=== PATIENT | female | born 1945 | race Caucasian/White ===

== ENCOUNTER → 2020-08-17 | Outpatient (CLI) | payer MEDICARE, OTHER | END | disposition home or self-care (01) | LOC: LAB SHORT 12:40 | DX: L82.1 Other seborrheic keratosis (principal) | CPT/HCPCS: 88305 ==

== ENCOUNTER 2021-05-03 15:56 | Emergency (ER) | payer MEDICARE, OTHER ==
[~2021-05-03] VITALS: Ht 157.5 cm; Wt 58.1 kg
[2021-05-03 16:41] LABS: BASOPHILS ABSOLUTE AUTO 0.06 K/mm3 (0.00-0.23); BASOPHILS PERCENT AUTO 1 % (0-2); EOSINOPHILS ABSOLUTE AUTO 0.18 K/mm3 (0.00-0.68); EOSINOPHILS PERCENT AUTO 3 % (0-6); Hematocrit 45.6 % (33.0-51.0); Hemoglobin 15.2 g/dL (11.5-16.0); IMMATURE GRAN ABSOLUTE AUTO 0.02 K/mm3 (0.00-0.10); IMMATURE GRAN PERCENT AUTO 0 % (0-1); LYMPHOCYTES ABSOLUTE AUTO 1.87 K/mm3 (0.84-5.20); LYMPHOCYTES PERCENT AUTO 27 % (21-46); MONOCYTES ABSOLUTE AUTO 0.62 K/mm3 (0.16-1.47); MONOCYTES PERCENT AUTO 9 % (4-13); Mean Corpuscular HGB 30.6 pg (26.0-34.0); Mean Corpuscular HGB Conc 33.3 g/dL (31.5-36.5); Mean Corpuscular Volume 92 fL (80-100); Mean Platelet Volume 8.1 fL (9.1-12.4); NEUTROPHILS ABSOLUTE AUTO 4.12 K/mm3 (1.96-9.15); NEUTROPHILS PERCENT AUTO 60 % (41-73); Platelet Count 319 K/mm3 (150-400); RDW Coefficient Variation 13.1 % (11.7-14.2); RDW Standard Deviation 44.1 fL (35.1-46.3); Red Blood Cell Count 4.96 M/mm3 (3.80-5.20); White Blood Cell Count 6.87 K/mm3 (4.00-11.30)
[2021-05-03 17:18] LABS: Alanine Aminotransfer (ALT/SGP 26 U/L (12-78); Albumin/Globulin Ratio 1.2 (0.8-1.8); Alk Phos 87 U/L (50-136); Anion Gap 5 mmol/L (6-16); Aspartate Aminotrans (AST/SGOT 17 U/L (12-37); Bilirubin, Total 0.5 mg/dL (0.1-1.0); Blood Urea Nitrogen 22 mg/dL (8-24); CO2, Blood 30 mmol/L (21-32); Calcium, Blood 9.7 mg/dL (8.5-10.1); Chloride, Blood 106 mmol/L (98-108); Creatinine, Blood 0.65 mg/dL (0.40-1.00); Globulin, Blood 3.3 g/dL (2.2-4.0); Glomerular Filtration Rate >60 (60-); Glucose, Blood 116 mg/dL (70-99); Potassium, Blood 4.2 mmol/L (3.5-5.5); Sodium, Blood 141 mmol/L (136-145); Total Protein, Blood 7.3 g/dL (6.4-8.2); Troponin I <0.015 ng/mL (0.000-0.040)
[2021-05-03 17:37] LABS: Source, Urine Clean Catch
[2021-05-03 17:45] LABS: Appearance, Urine Hazy (Clear); Bilirubin, Urine Neg (Neg); Blood, Urine Neg (Neg); Color, Urine Yellow (P-Yellow); Glucose Qualitative, Urine Neg (Neg); Ketones, Urine Neg (Neg); Leukocyte Esterase, Urine 3+ (Neg); Nitrite, Urine Pos (Neg); Protein, Urine Neg (Neg); Specific Gravity, Urine 1.025 (1.003-1.022); Urobilinogen, Urine NORM (Normal)
[2021-05-03 17:53] LABS: Bacteria Many /hpf; Red Blood Cells, Urine 0-2 /hpf (0-2); Squamous Epithelial Cells Few /hpf (Few)
[2021-05-03] MEDS ORDERED: SULTRISS PO (18:30)
== END 2021-05-03 18:48 | disposition home or self-care (01) ==
LOC: ER 15:56
PROVIDERS: Physician Assistant
DX: R55 Syncope and collapse (principal); N39.0 Urinary tract infection, site not specified
CPT/HCPCS: 36415; 70450; 71046; 80053; 81001; 82550; 84484; 85025; 87077; 87086; 87186; 93005; 93010; 99284-25; A9270

== ENCOUNTER 2023-08-08 08:58 | Day surgery (SDC) | payer OTHER ==
[~2023-08-08 08:58] MED LIST: SULTRISS PO
[2023-08-16] MEDS ORDERED: ATOR40TA PO (11:38)
[2023-08-16] MEDS ORDERED: CLOP75 PO (11:39)
[2023-08-16] MEDS ORDERED: GLUCHON (11:40)
[2023-08-16] MEDS ORDERED: FLAX (11:40)
[2023-08-16] MEDS ORDERED: COQ-10100 MG PO (11:40)
[2023-08-16] MEDS ORDERED: MAGCHL64ER PO (11:41)
[2023-08-16] MEDS ORDERED: OBSTETRIX ONE PO (11:41)
[2023-08-16] MEDS ORDERED: KRILL OIL500 MG (11:41)
== END 2023-09-05 23:14 | disposition home or self-care (01) ==
LOC: MOI MAM 08:58
DX: C50.811 Malignant neoplasm of overlapping sites of right female breast (principal); Z17.0 Estrogen receptor positive status [ER+]
CPT/HCPCS: 19281; A4648

== ENCOUNTER 2023-08-22 08:54 | Day surgery (SDC) | payer OTHER ==
[~2023-08-22] VITALS: Ht 157.5 cm; Wt 56.0 kg
[2023-08-22] VITALS (14 sets, daily range): BP systolic 126–177; BP diastolic 72–97
[~2023-08-22 08:54] MED LIST changes: +ATOR40TA PO; +CLOP75 PO; +COQ-10100 MG PO; +FLAX; +GLUCHON; +KRILL OIL500 MG; +MAGCHL64ER PO; +OBSTETRIX ONE PO
[2023-08-22] MEDS ORDERED: Lactated Ringer's 1,000 ML IV SCH (09:30)
[2023-08-22] MEDS ORDERED: CeFAZolin Sodium 2,000 MG in NS 100 ML IV SCH (09:30)
[2023-08-22] MEDS ORDERED: CeFAZolin Sodium 2,000 MG VIAL ONE (09:49)
--- NOTE | 2023-08-22 11:01 | NUR ---
PRE-OP NOTE PT A&OX4, BREATHING RA, VSS, CALM, NO COMPLAINTS, DAUGHTER AT BEDSIDE. Ambulatory in Day Surgery Patient confirms NPO status and agrees with scheduled surgery. Pre-Op teaching done. Pt verbalizes understanding. Patient States Post-Procedure ride home has been arranged.
[2023-08-22] MEDS ORDERED: Methylene Blue 1% 100 MG/10 ML VIAL ONE (11:19)
[2023-08-22] MEDS ORDERED: Bupivacaine 0.5% HCl 5 MG/ML 30MLVIAL ONE (11:20)
[2023-08-22] MEDS ORDERED: FentaNYL Citrate 50 MCG/ML 2 ML Injection ONE (14:03)
[2023-08-22] MEDS ORDERED: HYDROcodone 5-APAP 325 TAB PO PRN (14:25)
[2023-08-22] MEDS ORDERED: Metoclopramide HCl 5MG / ML 2ML Vial IV ONE (14:50)
--- NOTE | 2023-08-22 15:20 | NUR ---
1423 REPORT RECEIVED FROM GIOVANY DESIR. VSS. PT ON RA. PT ABLE TO REPOSITION SELF IN BED. PT REQUESTING PO FOOD AND FLUIDS AND TOLERATING THEM WELL. PT REPORTS 3/10 ACHING PAIN TO RIGHT BREAST. PT ALSO REPORTS NAUSEA, BUT REFUSES NAUSEA MEDICATION AT THIS TIME SHE STATES EATING SOMETHING IS HELPING IT GO AWAY. PT ALSO DENIES WANTING MORE PAIN MEDICATION SHE SAYS IT IS AT A TOLERABLE LEVEL. PT HAS 2 DRESSINGS THAT ARE COVERED WITH EXOFEN WELL A BREAST BINDER IN PLACE THAT ARE C/D/I WITHOUT DRAINAGE, REDNESS, OR SWELLING. PT FAMILY AT BEDSIDE.
--- NOTE | 2023-08-22 15:24 | NUR ---
1510 Patient up to Ambulate independently. Gait steady. VSS AND CONSISTENT WITH PT BASELINE. PT STATES HER NAUSEA HAS SUBSIDED AFTER EATING AND HER PAIN IS WELL CONTROLLED. PT VERBALIZES READINESS TO GO HOME. Discharge instructions reviewed with patient. Patient verbalizes understanding. Copy given to patient to take home. Dressing to procedure site clean, dry, intact with no visible drainage, swelling, erythema or bruising noted. Patient States Post-Procedure ride home has been arranged. Discharged via wheelchair to private car for ride home. PT BELONGINGS RETURNED TO PT.
== END 2023-08-22 15:18 | disposition home or self-care (01) ==
LOC: NM 08:54 → ORSCMMR 08:54 → NM 09:30
PROVIDERS: Surgery
PROC: 0HBT0ZZ Excision of Right Breast, Open Approach (ICD-10-PCS; principal; 2023-08-22 10:30)
PROC: 07B50ZX Excision of Right Axillary Lymphatic, Open Approach, Diagnostic (ICD-10-PCS; principal; 2023-08-22 10:30)
DX: C50.811 Malignant neoplasm of overlapping sites of right female breast (principal); Z17.1 Estrogen receptor negative status [ER-]; D36.0 Benign neoplasm of lymph nodes; E78.5 Hyperlipidemia, unspecified; Z85.828 Personal history of other malignant neoplasm of skin; Z86.73 Personal history of transient ischemic attack (TIA), and cerebral infarction without residual deficits; Z79.02 Long term (current) use of antithrombotics/antiplatelets; Z79.899 Other long term (current) drug therapy
CPT/HCPCS: 38792; 76098; 88307; 88342; 88360; 93005; 93010; A9520; J0690; J3010; J7120; Q9968

== ENCOUNTER → 2025-03-10 | Outpatient (CLI) | payer MEDICARE, OTHER | LOC: LAB SHORT 11:31 → LAB 11:31 | DX: R35.0 Frequency of micturition (principal) | CPT/HCPCS: 87077; 87086; 87186 ==